=== PATIENT | female | born 1960 | race Caucasian/White ===

== ENCOUNTER → 2016-11-04 | Outpatient (CLI) | payer OTHER ==
[~2016-11-04] MED LIST: AMBI10TA PO; ATOR20TA15 PO; ESZO1TAB3 PO; FLON0.053; FLUT1SPR5 EACH NARE; IBUP800T23 PO; MORP1CAP63 PO; MORP1TAB25 PO; MORP1TAB27 PO; MORP60TA20 PO; MORP60TA24 PO; MSIR30 PO; PROM25SU8 PO; PROM25TA10 PO; ROBA750T PO; XANA2TAB2 PO
== END ==
LOC: PHPRE 14:10
PROVIDERS: ATTEND Obstetrics & Gynecology
DX: N95.0 Postmenopausal bleeding (principal)

== ENCOUNTER → 2016-11-06 | Day surgery (SDC) | payer OTHER ==
[~2016-11-06] VITALS: Ht 160 cm; Wt 99.0 kg
[~2016-11-06] MED LIST changes: +CHLORHEXIDINE GLUCONATE 2 % 1 PACK (2 CLOTHS) TOPICAL PRN; -FLON0.053; -IBUP800T23 PO; +INSULIN HUMAN REGULAR 1,000 UNITS/10 ML VIAL SQ PRN; +KETOROLAC TROMETHAMINE 30 MG/ML (IVP) VIAL ONE; +LACTATED RINGER'S 1000 ML IV PRN; +METOPROLOL TARTRATE 25 MG TAB PO PRN; -MORP1CAP63 PO; -MORP60TA20 PO; -MORP60TA24 PO; +ONDANSETRON HCL 4 MG/2 ML VIAL IV ONE; +POVIDONE IODINE 5% (ANTISEPSIS KIT) 4 APPLICATIONS EACH NARE PRN; -PROM25SU8 PO; +PROPOFOL 200 MG/20 ML AMP IV ONE; -ROBA750T PO; +SODIUM CHLORID 0.9% 500 ML IV PRN
[2016-11-06 08:32] VITALS: BP 133/81; PULSE 79; RESP 18; TEMP 98.6; O2SAT 93
[2016-11-06 12:30] VITALS: TEMP 97.6
[2016-11-06 13:05] VITALS: BP 142/76; PULSE 74; RESP 16; O2SAT 94
--- NOTE | 2016-11-06 14:26 | PD.OP ---
Operative Report Date of Surgery: Nov 06, 2016 Preoperative Diagnosis: (1) Postmenopausal bleeding (2) Stenosis, vagina, congenital (3) Obesity (BMI 30.0-34.9) Postoperative Diagnosis: (1) Postmenopausal bleeding (2) Cervical stenosis (uterine cervix) (3) Stenosis, vagina, congenital (4) Uterine anomaly (5) Obesity (BMI 30.0-34.9) Procedure: hysteroscopy with dilation and curettage Anesthesia: general by LMA, Dr. Bernal Surgeon: Dia Jovel Sfd[employer] Architect(s): Na Nicole Surgeon: n/a Operation and Findings: Indications: This obese patient was referred by Dr. Schwab for a week of post-menopausal bleeding. Transvaginal ultrasound showed normal myometrium, normal ovaries and endometrium uniform and thin at 3-4 mm. Patient was uncomfortable even for exam in the office and requested D&C and hysteroscopy instead of office biopsy. Findings: Patient was found on pelvic exam under anesthesia to have stenosis of the upper 1/3 of the vagina. This was manually dilated because access and visualization were difficult. She had a long narrow cervix which was stenotic and difficult to dilate despite misoprostol pre-op. On entering the uterine cavity, the right tubal ostium was located straight on. On slowly withdrawing the hysteroscope a second uterine horn with visible tubal ostium was seen. The endometrium was atrophic with only scant tissue returning on D&C. Procedure: Patient was brought to the OR and laid supine on the table, then was allowed to get positioned comfortably in low stirrups in dorso-lithotomy position. General anesthesia was then induced and LMA placed. An open-sided speculum was placed in the vagina after Betadine prep and time out. The anterior lip of the cervix was grasped with a single tooth tenaculum, and the cervix was dilated to accept a standard rigid hysteroscope. There was more than the typical resistance to dilation, and the cervix was long. The uterine cavity sounded to 8 cm. After viewing and taking pictures, the endometrium was the thoroughly sampled using a medium sharp curet. Scant tissue returned. The procedure being complete, the instruments were removed, the patient was replaced supine and she was awakened. She was transferred to the PACU breathing on her own in stable condition. Sponge, needle, and instrument counts were correct. Dia Jovel MD Nov 06, 2016 14:26
== END | disposition home or self-care (01) ==
LOC: PHSDC 06:52
PROVIDERS: ATTEND Obstetrics & Gynecology
DX: N95.0 Postmenopausal bleeding (principal); N88.2 Stricture and stenosis of cervix uteri; N89.5 Stricture and atresia of vagina; Z68.30 Body mass index [BMI] 30.0-30.9, adult; E66.9 Obesity, unspecified
CPT/HCPCS: 00952; 58558; 88305; J1885; J2405; J7120

== ENCOUNTER 2016-11-24 19:22 | Emergency (ER) | payer OTHER, MEDICARE ==
[~2016-11-24] VITALS: Ht 162.6 cm; Wt 98.7 kg
[~2016-11-24 19:22] MED LIST changes: -CHLORHEXIDINE GLUCONATE 2 % 1 PACK (2 CLOTHS) TOPICAL PRN; -ESZO1TAB3 PO; -INSULIN HUMAN REGULAR 1,000 UNITS/10 ML VIAL SQ PRN; -KETOROLAC TROMETHAMINE 30 MG/ML (IVP) VIAL ONE; -LACTATED RINGER'S 1000 ML IV PRN; -METOPROLOL TARTRATE 25 MG TAB PO PRN; -MORP1TAB25 PO; -ONDANSETRON HCL 4 MG/2 ML VIAL IV ONE; -POVIDONE IODINE 5% (ANTISEPSIS KIT) 4 APPLICATIONS EACH NARE PRN; -PROM25TA10 PO; -PROPOFOL 200 MG/20 ML AMP IV ONE; -SODIUM CHLORID 0.9% 500 ML IV PRN
[2016-11-24 19:41] VITALS: BP 148/71; PULSE 101; RESP 14; TEMP 98.7; O2SAT 97
--- NOTE | 2016-11-24 20:25 | PD ---
HPI Chief Complaint: Back/ Neck Pain or Injury Time Seen by Provider: 20:10 Travel History International Travel<30 days: No Contact w/Intl Traveler<30days: No Traveled to known affect area: No History of Present Illness HPI 56-year-old female with chronic neck and back pain presents to the emergency room for acute worsening of neck pain. Patient states she was sitting in a volleyball game when a rogue ball hit her straight on in the face. It caused her glasses to get knocked off and neck to jerk back. She denies loss of consciousness. States since then she has had worsening left-sided neck pain that radiates into her shoulder. Pain is worse with range of motion. She came straight from the game and has not taken anything for symptoms. Patient is on morphine daily for chronic neck and back pain as prescribed by her neurologist. Denies paresthesias. Patient has chronic stenosis and gets an MRI twice a year. Her next MRI as scheduled for around January. PFSH Past Medical History Arthritis: No Asthma: No Autoimmune Disease: No Anxiety: Yes Heart Rhythm Problems: No Cancer: No Cardiovascular Problems: No High Cholesterol: Yes Chest Pain: No Congestive Heart Failure: No COPD: No Cerebrovascular Accident: No Diabetes: No Diminished Hearing: No Endocrine: No GERD: No Genitourinary: No Headaches: Yes Hepatitis: No Hiatal Hernia: No Immune Disorder: No Kidney Stones: No Medical other: Yes (CHOLESTEROL) Musculoskeletal: Yes (CHRONIC NECK, BACK AND JOINT PAIN) Neurologic: Yes (CBP, NECK & BACK) Psychiatric: No Reproductive: Yes (TIPPED CERVIX) Respiratory: No Immunizations Current: No Migraines: Yes Renal Failure: No Seizures: No Sleep Apnea: No Thyroid Disease: No Ulcer: No Tetanus Vaccination: Unknown Influenza Vaccination: No ?: Not LMP: 2 MONTHS AGO Menopausal: Yes Past Surgical History Abdominal Surgery: Yes (CHOLECYSTECTOMY) AICD: No Body Medical Devices: RODS & SCREWS IN BACK Cardiac Surgery: No Section: Yes (X 2) Cholecystectomy: Yes Ear Surgery: No Eye Surgery: No Genitourinary Surgery: No Gynecologic Surgery: Yes ( X 2) Joint Replacement: No Neurologic Surgery: Yes (LAMINECTOMY X2) Oral Surgery: Yes (WISDOM TEETH, ROOT CANAL X5) Pacemaker: No Thoracic Surgery: No Other Surgery: Yes (VEIN STRIPPING) Social History Alcohol Use: Yes (SOCIALLY) Tobacco Use: Yes (1PPD) Substance Use: No Allergies-Medications (Allergen,Severity, Reaction): Coded Allergies: Tylenol (Verified Allergy, Intermediate, Nausea/Vomiting, 11/06/16) 11/06/16: PT STATES THIS IS NO LONGER AN ALLERGY. HAD TESTING DONE. BUT PT DOES NOT WANT TO TAKE TYLENOL. Reported Meds & Prescriptions Reported Meds & Active Scripts Active Robaxin (Methocarbamol) 750 Mg Tab 750 Mg PO Q8HR Ibuprofen 800 Mg Tab 800 Mg PO Q8H PRN Reported Morphine IR (Morphine Sulfate) 30 Mg Tab 30 Mg PO TID PRN Morphine ER (Morphine Sulfate) 100 Mg Tab 100 Mg PO Q8H Atorvastatin (Atorvastatin Calcium) 20 Mg Tab 20 Mg PO HS Ambien (Zolpidem Tartrate) 10 Mg Tab 10 Mg PO HS PRN Flonase Nasal Rainier (Fluticasone Nasal Rainier) 50 Mcg/Act [place] 50 Mcg EACH NARE BID Xanax (Alprazolam) 2 Mg Tab 3 Mg PO BID PRN Review of Systems Except as stated in HPI: all other systems reviewed are Neg Physical Exam Narrative GENERAL: Well-nourished, well-developed female in no acute distress. Afebrile. Ambulatory. SKIN: Focused skin assessment warm/dry. HEAD: Normocephalic. EYES: No scleral icterus. No injection or drainage. NECK: Supple, trachea midline. No JVD or lymphadenopathy. No significant midline tenderness. Full range of motion with moderate pain. CARDIOVASCULAR: Regular rate and rhythm without murmurs, gallops, or rubs. RESPIRATORY: Breath sounds equal bilaterally. No accessory muscle use. BACK: Nontender without obvious deformity. No CVA tenderness. Data Data Last Documented VS Vital Signs Date Time Temp Pulse Resp B/P Pulse Ox O2 Delivery O2 Flow Rate FiO2 11/24/16 19:41 98.7 101 14 148/71 97 Orders Dexamethasone Inj (Decadron Inj) (11/24/16 20:30) Methocarbamol (Robaxin) (11/24/16 20:30) Ibuprofen (Motrin) (11/24/16 20:30) [facility] Medical Decision Making Medical Screen Exam Complete: Yes Emergency Medical Condition: Yes Medical Record Reviewed: Yes Differential Diagnosis Cervical strain, fracture, sprain, dislocation Narrative Course 56-year-old female with history of chronic neck and back pain on morphine prescribed by a neurologist presents to the emergency room for evaluation of left-sided neck pain after whiplash injury just prior to arrival. Patient was hit in the face with a rogue volleyball. Physical exam reveals extreme tenderness to palpation of the left neck with radiation into the left upper arm. Patient denies paresthesias. No significant midline tenderness. No loss of range of motion. [place] CT cervical spine rules exclude need for emergent imaging at this time. Patient was told to follow up with her neurologist for outpatient MRI if symptoms persist. She was given ibuprofen, Robaxin, and Decadron in the emergency room and discharged with prescriptions for ibuprofen and Robaxin. She understands and agrees to plan. Diagnosis Primary Impression: Cervical strain, acute Qualified Code: S16.1XXA - Cervical strain, acute, initial encounter Referrals: Primary Care Physician Patient Instructions: Cervical Strain (ED), General Instructions Additional Instructions: Rest and drink plenty of fluids. Take Robaxin as directed, as needed for pain. Take ibuprofen with food as directed, as needed for pain. Apply ice to the affected area for 20 minutes at a time, as needed for pain and swelling. Follow-up with a primary care physician. Return to the emergency room for worsening symptoms. Med/Other Pt SpecificInfo: Prescription(s) given Scripts Methocarbamol (Robaxin)750 Mg [id number] Mg PO Q8HR #21 TAB Ref 0 Prov:Kassy Angel MD 11/24/16 Ibuprofen 800 Mg [id number] Mg PO Q8H PRN (Pain/Inflammation) #21 TAB Ref 0 Prov:Kassy Angel MD 11/24/16 Disposition: 01 DISCHARGE HOME Condition: Stable Maritza Billings Nov 24, 2016 20:25
[2016-11-24] MEDS ORDERED: DEXAMETHASONE SOD PHOS 4 MG/ML VIAL IM ONE (20:30)
[2016-11-24] MEDS ORDERED: METHOCARBAMOL 500 MG TAB PO ONE (20:30)
[2016-11-24] MEDS ORDERED: IBUPROFEN 600 MG TAB PO ONE (20:30)
[2016-11-24] MEDS ORDERED: IBUP800T23 PO (21:05)
[2016-11-24] MEDS ORDERED: ROBA750T PO (21:05)
== END 2016-11-24 21:25 | disposition home or self-care (01) ==
LOC: PHEFT 19:22
DX: S16.1XXA Strain of muscle, fascia and tendon at neck level, initial encounter (principal); W21.06XA Struck by volleyball, initial encounter
CPT/HCPCS: 96372; 99284; J1100